=== PATIENT | female | born 1995 | race Asian ===

== ENCOUNTER 2017-06-15 00:03 | Emergency (ER) | payer OTHER ==
[2017-06-15 00:10] VITALS: RESP 16; O2SAT 97
--- NOTE | 2017-06-15 00:25 | EDPHY ---
General Narrative: CHIEF COMPLAINT: Hand laceration HISTORY OF PRESENT ILLNESS: Patient complains of laceration to the left hand between the index and middle finger. This is in the web space. This happened within the past hour from a butter knife while attempting to cut of peach. Moderately pain when happened. Minimally painful at rest. Moderately painful if she uses the hand. Some bleeding was noted but this has stopped with pressure. No pulsatile bleeding described. No numbness or tingling. No weakness. No injury elsewhere. Tetanus up-to-date. No other associated complaints or modifying factors. TIME OF INJURY: Less than 1 hour prior to arrival TETANUS STATUS: Up-to-date 2013 MEDICAL/SURGICAL/SOCIAL HISTORY: No medical diagnoses. No surgeries. Nonsmoker. REVIEW OF SYSTEMS: Ten systems reviewed and are negative unless otherwise noted in the HPI EXAMINATION General Appearance: Alert, no distress Head: normocephalic, atraumatic Cardiovascular: Pulses normal throughout. Symmetric radial pulses 2+. Brisk cap refill Neurological: A&O, sensory symmetric, interossei strength symmetric Skin: Warm and dry, no rash. 1.5 cm laceration on the left hand between the index and middle fingers. Does not expose the neurovascular bundle. No foreign body. Neurovascular intact. No pulsatile blood flow Extremities: Tender over the area laceration. Range of motion is fully intact on the left hand with full flexion-extension. DIFFERENTIAL DIAGNOSES: Including but not limited to laceration, laceration complication, laceration with tendon injury, laceration foreign body MDM: 12:20 a.m. Laceration to the left hand between the index and middle finger web space. There is no exposure of the vasculature or tendon apparatus. Range of motion is fully intact. Tetanus is up-to-date. Wound has been anesthetized. Proceed with irrigation closure. No indication for x-ray. 12:55 a.m. Laceration to the webspace has been repaired. She is neurovascular intact. Good strength of the interossei postprocedure. Wound care discussed. Return here in 7-10 days for suture removal. Patient is neurovascular intact and discharged in stable condition. PROCEDURE: Laceration repair Consent: Verbal Location: Left hand, web space between the index finger and middle finger Length of repair: 1.5 cm Complexity: Complex due to location Layer involvement: Single Anesthesia: Local. 1% lidocaine without epinephrine. 5 mL Irrigation: Extensive Debridement: None Procedure description: Following good anesthesia, the wound was copiously irrigated. Wound bed was explored and there is no foreign body noted. Wound borders were approximated well with good hemostasis. Tolerated well without complication. Suture/Staple material: 5-0 Prolene. 4 Simple interrupted sutures Wound care: Routine as discussed Suture/Staple removal: 7-10 Days ED Precautions: Worsening pain. Erythema, edema, cyanosis, pallor, paresthesia or anesthesia. - History Smoking Status: Never smoked - Objective Vital Signs: Initial Vital Signs Temperature (C) 98.8 F 06/15/17 00:07 Heart Rate 80 06/15/17 00:07 Respiratory Rate 16 06/15/17 00:07 Blood Pressure 128/82 H 06/15/17 00:07 O2 Sat (%) 97 06/15/17 00:07 O2 Delivery Mode Room Air Allergies/Adverse Reactions: No Known Allergies Allergy (Unverified 06/15/17 00:07) Home Medications: Medication Instructions Recorded Levora-28 Tablet 06/15/17 Departure - Departure Disposition: Home, Routine, Self-Care Clinical Impression: Laceration of hand without complication, excluding fingers Qualifiers: Encounter type: initial encounter Laterality: left Qualified Code(s): S61.412A - Laceration without foreign body of left hand, initial encounter Condition: Good Instructions: Care For Your Stitches (ED), Laceration (ED) Additional Instructions: 1. Daily wound care as discussed 2. ED precautions for worsening pain, redness, purulence, fever, difficulty with range of motion 3. Return to ED in 7-10 days for suture removal Referrals: [facility] [Other] - As per Instructions
[2017-06-15 01:04] VITALS: BP 118/84; PULSE 84; TEMP 98.4
== END 2017-06-15 01:02 | disposition home or self-care (01) ==
PROC: 0HQGXZZ Repair Left Hand Skin, External Approach (ICD-10-PCS; principal; 2017-06-15)
DX: S61.412A Laceration without foreign body of left hand, initial encounter (principal); W26.0XXA Contact with knife, initial encounter